=== PATIENT | male | born 1935 | race Caucasian/White ===

== ENCOUNTER 2017-07-27 03:46 | Inpatient (IN) | payer MEDICARE, BC ==
[2017-07-27] VITALS (10 sets, daily range): BP systolic 108–139; BP diastolic 53–92
[~2017-07-27] VITALS: Ht 177.8 cm; Wt 84.0 kg
[2017-07-27] MEDS ORDERED: mag hydrox/Alum hydrox/simeth 30ml oral suspension PO ONE (04:00)
[2017-07-27] MEDS ORDERED: LIDOcaine Viscous 15ml cup PO ONE (04:00)
[2017-07-27 04:20] LABS: BASOPHILS % (AUTO) 0.4 % (0-1); EOSINOPHILS # (AUTO) 0.2 X10'3 (0-0.9); EOSINOPHILS % (AUTO) 3.4 % (0-6); HEMATOCRIT 41.7 % (42.0-52.0); LYMPHOCYTES # (AUTO) 1.2 X10'3 (1.1-4.8); LYMPHOCYTES % (AUTO) 16.3 % (21-51); MEAN CORPUSCULAR HGB CONC 33.7 % (33.0-36.5); MEAN CORPUSCULAR VOLUME 98.1 FL (78-98); MEAN PLATELET VOLUME 8.2 FL (7.4-10.4); MONOCYTES # (AUTO) 0.7 X10'3 (0-0.9); MONOCYTES % (AUTO) 9.7 % (2-12); NEUTROPHILS % (AUTO) 70.2 % (42-75); PLATELET COUNT 189 X10'3 (140-440); RED BLOOD COUNT 4.25 X10'6 (4.70-6.10); RED CELL DISTRIBUTION WIDTH 13.7 % (11.5-14.5); WHITE BLOOD COUNT 7.1 X10'3 (4.5-11.0)
[2017-07-27] MEDS ORDERED: ondansetron/PF 4mg/2ml inj IV ONE (04:25)
[2017-07-27 04:33] LABS: PARTIAL THROMBOPLASTIN TIME 28 SECONDS (22-32); PROTHROMBIN TIME 10.5 SECONDS (9.0-12.0)
[2017-07-27 04:39] LABS: ALANINE AMINOTRANSFERASE 27 U/L (12-78); ALBUMIN 3.8 G/DL (3.4-5.0); ALBUMIN/GLOBULIN RATIO 1.2 (1.1-1.5); ALKALINE PHOSPHATASE 115 IU/L (46-116); ANION GAP 9 (8-16); ASPARTATE AMINO TRANSFERASE 19 U/L (10-37); BILIRUBIN,TOTAL 0.5 MG/DL (0.1-1.0); BLOOD UREA NITROGEN 27 MG/DL (7-18); BUN/CREATININE RATIO 24.3 (5.4-32.0); CALCIUM 9.3 MG/DL (8.5-10.1); CHLORIDE 106 MMOL/L (99-107); CREATININE 1.11 MG/DL (0.60-1.10); GLUCOSE 107 MG/DL (70-104); POTASSIUM 4.1 MMOL/L (3.5-5.1); SODIUM 144 MMOL/L (135-145); TOTAL CARBON DIOXIDE 29.5 MMOL/L (24-32); TOTAL PROTEIN 7.1 G/DL (6.4-8.2); eGFR 64 ML/MIN
[2017-07-27 04:40] LABS: LIPASE 178 U/L (73-393); MAGNESIUM 1.6 MG/DL (1.5-2.4)
[2017-07-27 05:10] LABS: CLARITY,URINE CLEAR (Clear); COLOR,URINE YELLOW (Yellow); GLUCOSE, URINE NEGATIVE (Neg); KETONES,URINE NEGATIVE (Neg); LEUKOCYTE ESTERASE ,URINE NEGATIVE (Neg); NITRITES, URINE NEGATIVE (Neg); OCCULT BLOOD,URINE NEGATIVE (Neg); PH,URINE 6.5 (4.8-8.0); PROTEIN,URINE NEGATIVE (Neg); UROBILINOGEN,URINE 0.2 E.U/dL (0.2-1.0)
[2017-07-27 05:20] LABS: UA COLLECTION TYPE CLN CATCH MIDSTREAM
[2017-07-27] MEDS ORDERED: METO25TA6 PO (05:25)
[2017-07-27] MEDS ORDERED: FINA5TAB11 PO (05:25)
[2017-07-27] MEDS ORDERED: MIRA50TA PO (05:25)
[2017-07-27] MEDS ORDERED: FLO0.4C PO (05:25)
[2017-07-27] MEDS ORDERED: CLOP75TA33 PO (05:26)
[2017-07-27] MEDS ORDERED: PANT-47 PO (05:26)
[2017-07-27] MEDS ORDERED: AMLO5TAB PO (05:28)
[2017-07-27] MEDS ORDERED: ATOR40TA PO (05:28)
[2017-07-27] MEDS ORDERED: normal saline 1000ml 1,000 ML IV SCH (08:43)
[2017-07-27] MEDS ORDERED: ondansetron/PF 4mg/2ml inj IV PRN (08:45)
[2017-07-27] MEDS ORDERED: mag hydrox/Alum hydrox/simeth 30ml oral suspension PO PRN (08:45)
[2017-07-27] MEDS ORDERED: magnesium 2GM in 50ml NS 50 ML IV PRN (08:45)
[2017-07-27] MEDS ORDERED: K and/or MAG REPLACEMENT MC SCH (08:45)
[2017-07-27] MEDS ORDERED: potassium Cl 40MEQ/NS 500ml 500 ML IV PRN ×2 (08:45)
[2017-07-27] MEDS ORDERED: potassium Cl 20 mEq SR tablet PO PRN ×2 (08:45)
[2017-07-27] MEDS ORDERED: morphine sulfate 8 MG/ML SYRINGE IV PRN ×2 (08:45)
[2017-07-27] MEDS ORDERED: magnesium 4gm in 100ml NS 100 ML IV PRN (08:45)
[2017-07-27] MEDS ORDERED: magnesium hydroxide 30ml (MOM) UD suspension PO PRN (08:45)
[2017-07-27] MEDS ORDERED: acetaminophen 325mg tablet PO PRN (08:45)
[2017-07-27] MEDS ORDERED: tamsulosin 0.4mg capsule PO SCH (08:50)
[2017-07-27] MEDS ORDERED: clopidogrel 75mg tablet PO SCH (08:50)
[2017-07-27] MEDS ORDERED: pantoprazole 40mg Tablet.DR PO SCH (08:50)
[2017-07-27] MEDS ORDERED: metoprolol tartrate 25mg tablet PO SCH (08:50)
[2017-07-27] MEDS ORDERED: metoprolol tartrate 1mg/ml inj IV PRN (09:00)
[2017-07-27] MEDS ORDERED: aminophylline 250mg/10ml inj. IV PRN (09:00)
[2017-07-27] MEDS ORDERED: nitroGLYCERIN 0.4mg SUBLingual tab SL PRN (09:00)
[2017-07-27] MEDS ORDERED: regadenoson 0.4mg/5ml syringe IV ONE (09:00)
[2017-07-28] MEDS ORDERED: mirabegron 25mg ER tablet PO SCH (08:00)
[2017-07-28] MEDS ORDERED: finasteride 5mg tablet PO SCH (08:00)
[2017-07-28] MEDS ORDERED: amLODIPine 5mg tablet PO SCH (08:00)
[2017-07-28] MEDS ORDERED: atorvastatin 20mg tablet PO SCH (08:00)
== END 2017-07-27 15:44 | disposition home or self-care (01) | DRG 446 ==
LOC: ER 03:47 → ED HOLD 08:43 → SUR 3N 09:45
PROVIDERS: ADMIT Internal Medicine; ATTEND Internal Medicine
PROC: 4A02XM4 Measurement of Cardiac Total Activity, External Approach (ICD-10-PCS; principal; 2017-07-27)
PROC: 3E073KZ Introduction of Other Diagnostic Substance into Coronary Artery, Percutaneous Approach (ICD-10-PCS; 2017-07-27)
DX: K80.20 Calculus of gallbladder without cholecystitis without obstruction (principal); K76.0 Fatty (change of) liver, not elsewhere classified; I12.9 Hypertensive chronic kidney disease with stage 1 through stage 4 chronic kidney disease, or unspecified chronic kidney disease; I25.10 Atherosclerotic heart disease of native coronary artery without angina pectoris; R07.9 Chest pain, unspecified; N18.9 Chronic kidney disease, unspecified; Z95.5 Presence of coronary angioplasty implant and graft; Z79.82 Long term (current) use of aspirin; Z79.899 Other long term (current) drug therapy; Z79.02 Long term (current) use of antithrombotics/antiplatelets
CPT/HCPCS: 36415; 71010; 74176; 76700; 78452; 80053; 81003; 83690; 83735; 84484; 85025; 85610; 85730; 93005; 93017; 93306; 96374; 96375; 99285; A9500; J2270; J2405; J7030

== ENCOUNTER 2018-06-30 00:52 | Inpatient (IN) | payer MEDICARE, BC ==
[~2018-06-30] VITALS: Ht 177.8 cm; Wt 90.9 kg
[~2018-06-30 00:52] MED LIST: AMLO5TAB PO; ATOR40TA PO; CLOP75TA33 PO; FINA5TAB11 PO; FLO0.4C PO; METO25TA6 PO; MIRA50TA PO; PANT-47 PO
[2018-06-30] MEDS ORDERED: ketorolac trometh. 30mg/ml inj. IV ONE (01:00)
[2018-06-30] MEDS ORDERED: LIDOcaine Viscous 15ml cup PO ONE (01:05)
[2018-06-30] MEDS ORDERED: mag hydrox/Alum hydrox/simeth 30ml oral suspension PO ONE (01:05)
[2018-06-30 01:13] LABS: EOSINOPHILS # (AUTO) 0.2 X10'3 (0-0.9); HEMATOCRIT 43.9 % (42.0-52.0); HEMOGLOBIN 14.9 g/dl (14.0-17.9); LYMPHOCYTES # (AUTO) 1.6 X10'3 (1.1-4.8); LYMPHOCYTES % (AUTO) 32.7 % (21-51); MEAN CORPUSCULAR HGB CONC 33.9 % (33.0-36.5); MEAN CORPUSCULAR VOLUME 97.3 FL (78-98); MEAN PLATELET VOLUME 8.4 FL (7.4-10.4); MONOCYTES # (AUTO) 0.7 X10'3 (0-0.9); MONOCYTES % (AUTO) 13.6 % (2-12); NEUTROPHILS # (AUTO) 2.3 X10'3 (1.8-7.7); NEUTROPHILS % (AUTO) 48.7 % (42-75); PLATELET COUNT 192 X10'3 (140-440); RED BLOOD COUNT 4.51 X10'6 (4.70-6.10); RED CELL DISTRIBUTION WIDTH 12.9 % (11.5-14.5); WHITE BLOOD COUNT 4.8 X10'3 (4.5-11.0)
[2018-06-30 01:23] LABS: ALANINE AMINOTRANSFERASE 46 U/L (12-78); ALBUMIN 3.7 G/DL (3.4-5.0); ALBUMIN/GLOBULIN RATIO 1.1 (1.1-1.5); ALKALINE PHOSPHATASE 127 IU/L (46-116); ANION GAP 7 (8-16); ASPARTATE AMINO TRANSFERASE 28 U/L (10-37); BILIRUBIN,TOTAL 0.4 MG/DL (0.1-1.0); BLOOD UREA NITROGEN 20 MG/DL (7-18); BUN/CREATININE RATIO 17.2 (5.4-32.0); CHLORIDE 106 MMOL/L (99-107); CREATININE 1.16 MG/DL (0.60-1.10); GLUCOSE 101 MG/DL (70-104); SODIUM 141 MMOL/L (135-145); TOTAL CARBON DIOXIDE 28.5 MMOL/L (24-32); eGFR 61 ML/MIN
[2018-06-30 01:31] LABS: MAGNESIUM 1.9 MG/DL (1.5-2.4)
[2018-06-30] MEDS ORDERED: ondansetron/PF 4mg/2ml inj IV ONE ×2 (01:40→03:45)
[2018-06-30] MEDS ORDERED: iohexol 300mg/ml 100ml inj. ONE (03:53)
[2018-06-30] MEDS: morphine 4 MG/ML inj SYRINge IV PRN ×2 (03:56→04:46)
[2018-06-30] MEDS ORDERED: pantoprazole 40 MG vial IV ONE (05:05)
[2018-06-30] MEDS ORDERED: ASPI-1265 PO (05:29)
[2018-06-30] MEDS ORDERED: morphine 4 MG/ML inj SYRINge IV ONE (05:40)
[2018-06-30] MEDS ORDERED: HYDROmorphone 1 mg/ml syringe IV ONE (05:45)
[2018-06-30] MEDS ORDERED: ondansetron/PF 4mg/2ml inj IV PRN (05:55)
[2018-06-30] MEDS ORDERED: HYDROmorphone 1 mg/ml syringe IV PRN (05:55)
[2018-06-30] MEDS ORDERED: mag hydrox/Alum hydrox/simeth 30ml oral suspension PO PRN (05:55)
[2018-06-30] MEDS ORDERED: acetaminophen 325mg tablet PO PRN ×2 (05:55)
[2018-06-30] MEDS ORDERED: magnesium hydroxide 30ml (MOM) UD suspension PO PRN (05:55)
[2018-06-30 07:30] VITALS: BP 165/82
[2018-06-30] MEDS ORDERED: mirabegron 25mg ER tablet PO SCH (08:00)
[2018-06-30] MEDS: normal saline 1000ml 1,000 ML IV SCH ×3 (09:56→22:40)
[2018-06-30] MEDS: clopidogrel 75mg tablet PO SCH (09:57)
[2018-06-30] MEDS: pantoprazole 40mg Tablet.DR PO SCH (09:57)
[2018-06-30] MEDS: HYDROmorphone 1 mg/ml syringe IV PRN ×2 (09:57→16:52)
[2018-06-30] MEDS: metoprolol tartrate 25mg tablet PO SCH (09:58)
[2018-06-30] MEDS: finasteride 5mg tablet PO SCH (09:58)
[2018-06-30] MEDS: aspirin 81mg tab.chew PO SCH (09:59)
[2018-06-30] MEDS: atorvastatin 20mg tablet PO SCH (09:59)
[2018-06-30] MEDS: amLODIPine 5mg tablet PO SCH (09:59)
[2018-06-30 10:00] VITALS: BP 154/77
[2018-06-30] MEDS ORDERED: iohexol 350MG/ML 100ml bottle IV ONE (13:36)
[2018-06-30 18:00] VITALS: BP 147/69
[2018-06-30 22:00] VITALS: BP 132/72
[2018-07-01] MEDS: HYDROmorphone 1 mg/ml syringe IV PRN ×2 (04:41→08:25)
[2018-07-01 05:47] LABS: BASOPHILS # (AUTO) 0.1 X10'3 (0-0.2); BASOPHILS % (AUTO) 1.1 % (0-1); EOSINOPHILS % (AUTO) 0.1 % (0-6); HEMATOCRIT 43.4 % (42.0-52.0); HEMOGLOBIN 14.4 g/dl (14.0-17.9); LYMPHOCYTES # (AUTO) 0.7 X10'3 (1.1-4.8); LYMPHOCYTES % (AUTO) 6.3 % (21-51); MEAN CORPUSCULAR HEMOGLOBIN 32.7 PG (27.0-31.0); MEAN CORPUSCULAR HGB CONC 33.1 % (33.0-36.5); MEAN CORPUSCULAR VOLUME 98.6 FL (78-98); MEAN PLATELET VOLUME 8.5 FL (7.4-10.4); MONOCYTES # (AUTO) 1.3 X10'3 (0-0.9); MONOCYTES % (AUTO) 11.6 % (2-12); NEUTROPHILS # (AUTO) 9.3 X10'3 (1.8-7.7); NEUTROPHILS % (AUTO) 80.9 % (42-75); PLATELET COUNT 175 X10'3 (140-440); RED CELL DISTRIBUTION WIDTH 13.6 % (11.5-14.5); WHITE BLOOD COUNT 11.5 X10'3 (4.5-11.0)
[2018-07-01 05:58] LABS: ALBUMIN 3.3 G/DL (3.4-5.0); ANION GAP 8 (8-16); BLOOD UREA NITROGEN 21 MG/DL (7-18); BUN/CREATININE RATIO 17.1 (5.4-32.0); CALCIUM 8.7 MG/DL (8.5-10.1); CHLORIDE 104 MMOL/L (99-107); CREATININE 1.23 MG/DL (0.60-1.10); GLUCOSE 115 MG/DL (70-104); POTASSIUM 4.2 MMOL/L (3.5-5.1); SODIUM 139 MMOL/L (135-145); eGFR 57 ML/MIN
[2018-07-01 06:00] VITALS: BP 157/77
[2018-07-01] MEDS: TYPE IN GENERIC & BRAND NAME OF PATIENT MED STRENGTH & FORM PO SCH (08:00)
[2018-07-01] MEDS: finasteride 5mg tablet PO SCH (08:28)
[2018-07-01] MEDS: pantoprazole 40mg Tablet.DR PO SCH (08:29)
[2018-07-01] MEDS: clopidogrel 75mg tablet PO SCH (08:29)
[2018-07-01] MEDS: metoprolol tartrate 25mg tablet PO SCH (08:29)
[2018-07-01] MEDS: amLODIPine 5mg tablet PO SCH (08:29)
[2018-07-01] MEDS: aspirin 81mg tab.chew PO SCH (08:29)
[2018-07-01] MEDS: normal saline 1000ml 1,000 ML IV SCH ×2 (08:29→21:21)
[2018-07-01] MEDS: atorvastatin 20mg tablet PO SCH (08:30)
[2018-07-01 10:00] VITALS: BP 150/82
[2018-07-01] MEDS: piperacillin/tazo 3.375gm/50ml 50 ML IV SCH ×2 (16:10→23:40)
[2018-07-01 18:00] VITALS: BP 136/73
[2018-07-01 22:00] VITALS: BP 155/73
[2018-07-02] MEDS: normal saline 1000ml 1,000 ML IV SCH (04:01)
[2018-07-02 05:00] VITALS: BP 149/72
[2018-07-02 06:36] LABS: BASOPHILS % (AUTO) 0.1 % (0-1); EOSINOPHILS # (AUTO) 0.2 X10'3 (0-0.9); EOSINOPHILS % (AUTO) 1.7 % (0-6); HEMATOCRIT 40.5 % (42.0-52.0); HEMOGLOBIN 13.5 g/dl (14.0-17.9); LYMPHOCYTES # (AUTO) 0.7 X10'3 (1.1-4.8); LYMPHOCYTES % (AUTO) 6.6 % (21-51); MEAN CORPUSCULAR HEMOGLOBIN 32.4 PG (27.0-31.0); MEAN CORPUSCULAR HGB CONC 33.3 % (33.0-36.5); MEAN CORPUSCULAR VOLUME 97.5 FL (78-98); MEAN PLATELET VOLUME 8.9 FL (7.4-10.4); MONOCYTES # (AUTO) 1.1 X10'3 (0-0.9); MONOCYTES % (AUTO) 10.4 % (2-12); NEUTROPHILS # (AUTO) 8.5 X10'3 (1.8-7.7); NEUTROPHILS % (AUTO) 81.2 % (42-75); PLATELET COUNT 159 X10'3 (140-440); RED BLOOD COUNT 4.15 X10'6 (4.70-6.10); RED CELL DISTRIBUTION WIDTH 13.3 % (11.5-14.5); WHITE BLOOD COUNT 10.4 X10'3 (4.5-11.0)
[2018-07-02 06:48] LABS: ALBUMIN 2.7 G/DL (3.4-5.0); ANION GAP 8 (8-16); BLOOD UREA NITROGEN 22 MG/DL (7-18); BUN/CREATININE RATIO 19.1 (5.4-32.0); CALCIUM 8.7 MG/DL (8.5-10.1); CHLORIDE 105 MMOL/L (99-107); CREATININE 1.15 MG/DL (0.60-1.10); GLUCOSE 101 MG/DL (70-104); POTASSIUM 3.9 MMOL/L (3.5-5.1); SODIUM 138 MMOL/L (135-145); TOTAL CARBON DIOXIDE 24.9 MMOL/L (24-32); eGFR 61 ML/MIN
[2018-07-02] MEDS: TYPE IN GENERIC & BRAND NAME OF PATIENT MED STRENGTH & FORM PO SCH (08:00)
[2018-07-02] MEDS: piperacillin/tazo 3.375gm/50ml 50 ML IV SCH (08:06)
[2018-07-02] MEDS: clopidogrel 75mg tablet PO SCH (08:06)
[2018-07-02] MEDS: finasteride 5mg tablet PO SCH (08:06)
[2018-07-02] MEDS: amLODIPine 5mg tablet PO SCH (08:06)
[2018-07-02] MEDS: metoprolol tartrate 25mg tablet PO SCH (08:07)
[2018-07-02] MEDS: aspirin 81mg tab.chew PO SCH (08:07)
[2018-07-02] MEDS: pantoprazole 40mg Tablet.DR PO SCH (08:07)
[2018-07-02 08:15] VITALS: BP 139/76
[2018-07-02 10:00] VITALS: BP 134/71
[2018-07-02] MEDS ORDERED: atorvastatin 20mg tablet PO SCH (14:40)
[2018-07-02 18:00] VITALS: BP 129/76
[2018-07-02] MEDS: lactobacillus rhamnosus 10,000 MMU CELLS/CAPSULE PO SCH (20:06)
[2018-07-02] MEDS: atorvastatin 20mg tablet PO SCH (21:22)
[2018-07-02 22:00] VITALS: BP 138/73
[2018-07-03] MEDS: morphine 2 MG/ML inj. syringe IV PRN (03:20)
[2018-07-03 05:57] LABS: BASOPHILS # (AUTO) 0.1 X10'3 (0-0.2); BASOPHILS % (AUTO) 1.2 % (0-1); EOSINOPHILS # (AUTO) 0.3 X10'3 (0-0.9); EOSINOPHILS % (AUTO) 3.7 % (0-6); HEMATOCRIT 42.1 % (42.0-52.0); HEMOGLOBIN 14.1 g/dl (14.0-17.9); LYMPHOCYTES # (AUTO) 0.9 X10'3 (1.1-4.8); LYMPHOCYTES % (AUTO) 10.7 % (21-51); MEAN CORPUSCULAR HEMOGLOBIN 32.8 PG (27.0-31.0); MEAN CORPUSCULAR HGB CONC 33.5 % (33.0-36.5); MEAN CORPUSCULAR VOLUME 97.9 FL (78-98); MEAN PLATELET VOLUME 8.5 FL (7.4-10.4); MONOCYTES # (AUTO) 0.8 X10'3 (0-0.9); MONOCYTES % (AUTO) 9.5 % (2-12); NEUTROPHILS # (AUTO) 6.1 X10'3 (1.8-7.7); NEUTROPHILS % (AUTO) 74.9 % (42-75); PLATELET COUNT 171 X10'3 (140-440); RED CELL DISTRIBUTION WIDTH 13.4 % (11.5-14.5); WHITE BLOOD COUNT 8.1 X10'3 (4.5-11.0)
[2018-07-03 06:00] VITALS: BP 143/79
[2018-07-03 06:05] LABS: ALBUMIN 2.8 G/DL (3.4-5.0); ANION GAP 7 (8-16); BLOOD UREA NITROGEN 17 MG/DL (7-18); BUN/CREATININE RATIO 14.8 (5.4-32.0); CALCIUM 8.9 MG/DL (8.5-10.1); CHLORIDE 107 MMOL/L (99-107); CREATININE 1.15 MG/DL (0.60-1.10); GLUCOSE 90 MG/DL (70-104); POTASSIUM 3.9 MMOL/L (3.5-5.1); SODIUM 141 MMOL/L (135-145); TOTAL CARBON DIOXIDE 27.1 MMOL/L (24-32); eGFR 61 ML/MIN
[2018-07-03] MEDS ORDERED: NORMAL SALINE IV ONE (07:40)
[2018-07-03] MEDS ORDERED: SINCALIDE IV ONE (07:40)
[2018-07-03] MEDS: lactobacillus rhamnosus 10,000 MMU CELLS/CAPSULE PO SCH ×2 (08:00→19:19)
[2018-07-03] MEDS: clopidogrel 75mg tablet PO SCH (08:00)
[2018-07-03] MEDS: amLODIPine 5mg tablet PO SCH (08:00)
[2018-07-03] MEDS: TYPE IN GENERIC & BRAND NAME OF PATIENT MED STRENGTH & FORM PO SCH (08:00)
[2018-07-03] MEDS: metoprolol tartrate 25mg tablet PO SCH (08:00)
[2018-07-03] MEDS: pantoprazole 40mg Tablet.DR PO SCH (08:00)
[2018-07-03] MEDS: finasteride 5mg tablet PO SCH (08:00)
[2018-07-03 08:14] LABS: LIPASE 146 U/L (73-393)
[2018-07-03] MEDS: aspirin 81mg tab.chew PO SCH (08:30)
[2018-07-03 08:39] LABS: ALANINE AMINOTRANSFERASE 26 U/L (12-78); ALBUMIN/GLOBULIN RATIO 0.8 (1.1-1.5); ALKALINE PHOSPHATASE 95 IU/L (46-116); ASPARTATE AMINO TRANSFERASE 23 U/L (10-37); BILIRUBIN,DIRECT 0.2 MG/DL (0-0.3); BILIRUBIN,TOTAL 1.3 MG/DL (0.1-1.0); TOTAL PROTEIN 6.3 G/DL (6.4-8.2)
[2018-07-03] MEDS ORDERED: morphine 2 MG/ML inj. syringe IV PRN (15:45)
[2018-07-03] MEDS ORDERED: morphine 2 MG/ML inj. syringe ONE (15:47)
[2018-07-03 18:00] VITALS: BP 159/91
[2018-07-03] MEDS: atorvastatin 20mg tablet PO SCH (19:21)
[2018-07-03 22:00] VITALS: BP 142/76
[2018-07-04] VITALS (21 sets, daily range): BP systolic 130–183; BP diastolic 68–101
[2018-07-04 06:01] LABS: BASOPHILS % (AUTO) 0.5 % (0-1); EOSINOPHILS # (AUTO) 0.4 X10'3 (0-0.9); HEMATOCRIT 39.6 % (42.0-52.0); HEMOGLOBIN 13.4 g/dl (14.0-17.9); LYMPHOCYTES # (AUTO) 0.9 X10'3 (1.1-4.8); LYMPHOCYTES % (AUTO) 15.2 % (21-51); MEAN CORPUSCULAR HGB CONC 33.8 % (33.0-36.5); MEAN CORPUSCULAR VOLUME 97.6 FL (78-98); MEAN PLATELET VOLUME 8.3 FL (7.4-10.4); MONOCYTES # (AUTO) 0.7 X10'3 (0-0.9); MONOCYTES % (AUTO) 12.2 % (2-12); NEUTROPHILS # (AUTO) 3.9 X10'3 (1.8-7.7); NEUTROPHILS % (AUTO) 65.1 % (42-75); PLATELET COUNT 198 X10'3 (140-440); RED BLOOD COUNT 4.06 X10'6 (4.70-6.10)
[2018-07-04 06:05] LABS: ALBUMIN 2.7 G/DL (3.4-5.0); ANION GAP 9 (8-16); BLOOD UREA NITROGEN 17 MG/DL (7-18); BUN/CREATININE RATIO 16.3 (5.4-32.0); CALCIUM 8.7 MG/DL (8.5-10.1); CHLORIDE 106 MMOL/L (99-107); CREATININE 1.04 MG/DL (0.60-1.10); GLUCOSE 85 MG/DL (70-104); POTASSIUM 3.7 MMOL/L (3.5-5.1); SODIUM 141 MMOL/L (135-145); TOTAL CARBON DIOXIDE 26.2 MMOL/L (24-32); eGFR 69 ML/MIN
[2018-07-04] MEDS ORDERED: LIDOcaine 1% 30ml preserv. free vial ONE (06:58)
[2018-07-04] MEDS ORDERED: BUPIVAcaine/PF 2.5mg/ml (0.25%) 10ml vial ONE (06:58)
[2018-07-04] MEDS ORDERED: sevoflurane 250ml liquid IH ONE (07:23)
[2018-07-04] MEDS ORDERED: midazolam 2 mg/2 ml injection ONE (07:29)
[2018-07-04] MEDS ORDERED: fentaNYL/PF 50MCG/1 ML 2ML syringe ONE ×2 (07:29)
[2018-07-04] MEDS ORDERED: propofol inj 20 ML IV ONE (07:32)
[2018-07-04] MEDS ORDERED: rocuronium 10mg/ml inj IV ONE (07:34)
[2018-07-04] MEDS ORDERED: proCHLORperazine 10 MG/2 ml inj IV PRN (08:00)
[2018-07-04] MEDS ORDERED: ondansetron/PF 4mg/2ml inj IV PRN (08:00)
[2018-07-04] MEDS ORDERED: morphine 4 MG/ML inj SYRINge IV PRN ×2 (08:00)
[2018-07-04] MEDS ORDERED: meperidine/PF 25mg/ml syringe IV PRN ×2 (08:00)
[2018-07-04] MEDS ORDERED: ringers solution, lacted 1,000 ML IV SCH (08:00)
[2018-07-04] MEDS: TYPE IN GENERIC & BRAND NAME OF PATIENT MED STRENGTH & FORM PO SCH (08:00)
[2018-07-04] MEDS ORDERED: glycopyrrolate 0.2mg/ml inj ONE (08:57)
[2018-07-04] MEDS ORDERED: neostigmine methylsulfate 1 MG/ML 10ml vial ONE (08:57)
[2018-07-04] MEDS ORDERED: HYDROcodone/acetaminophen 5mg/325mg tablet PO PRN (09:00)
[2018-07-04] MEDS: meperidine/PF 25mg/ml syringe IV PRN ×2 (09:20→09:49)
[2018-07-04] MEDS ORDERED: LIDOcaine 2% 10ml TOPICAL JELLY (Urojet) MM ONE (12:35)
[2018-07-04] MEDS: lactobacillus rhamnosus 10,000 MMU CELLS/CAPSULE PO SCH ×2 (13:32→20:36)
[2018-07-04] MEDS: metoprolol tartrate 25mg tablet PO SCH (13:33)
[2018-07-04] MEDS: aspirin 81mg tab.chew PO SCH (13:34)
[2018-07-04] MEDS: clopidogrel 75mg tablet PO SCH (13:34)
[2018-07-04] MEDS: amLODIPine 5mg tablet PO SCH (13:34)
[2018-07-04] MEDS: pantoprazole 40mg Tablet.DR PO SCH (13:34)
[2018-07-04] MEDS: finasteride 5mg tablet PO SCH (13:34)
[2018-07-04] MEDS: HYDROcodone/acetaminophen 10/325mg tab PO PRN ×2 (13:35→20:38)
[2018-07-04] MEDS: docusate sod 100mg capsule PO PRN (13:35)
[2018-07-04] MEDS: atorvastatin 20mg tablet PO SCH (20:36)
[2018-07-04] MEDS: morphine 2 MG/ML inj. syringe IV PRN (21:41)
[2018-07-05 02:00] VITALS: BP 148/83
[2018-07-05] MEDS: HYDROcodone/acetaminophen 10/325mg tab PO PRN ×2 (05:51→18:31)
[2018-07-05 06:00] VITALS: BP 149/91
[2018-07-05 06:09] LABS: BASOPHILS % (AUTO) 0.6 % (0-1); EOSINOPHILS # (AUTO) 0.2 X10'3 (0-0.9); EOSINOPHILS % (AUTO) 2.5 % (0-6); HEMATOCRIT 40.4 % (42.0-52.0); HEMOGLOBIN 13.6 g/dl (14.0-17.9); LYMPHOCYTES # (AUTO) 0.7 X10'3 (1.1-4.8); LYMPHOCYTES % (AUTO) 11.4 % (21-51); MEAN CORPUSCULAR HEMOGLOBIN 32.6 PG (27.0-31.0); MEAN CORPUSCULAR HGB CONC 33.6 % (33.0-36.5); MEAN CORPUSCULAR VOLUME 96.8 FL (78-98); MEAN PLATELET VOLUME 8.2 FL (7.4-10.4); MONOCYTES # (AUTO) 0.7 X10'3 (0-0.9); MONOCYTES % (AUTO) 10.9 % (2-12); NEUTROPHILS # (AUTO) 4.7 X10'3 (1.8-7.7); NEUTROPHILS % (AUTO) 74.6 % (42-75); PLATELET COUNT 221 X10'3 (140-440); RED BLOOD COUNT 4.17 X10'6 (4.70-6.10); RED CELL DISTRIBUTION WIDTH 12.8 % (11.5-14.5); WHITE BLOOD COUNT 6.3 X10'3 (4.5-11.0)
[2018-07-05 06:27] LABS: ANION GAP 11 (8-16); BLOOD UREA NITROGEN 17 MG/DL (7-18); BUN/CREATININE RATIO 17.3 (5.4-32.0); CALCIUM 8.8 MG/DL (8.5-10.1); CHLORIDE 102 MMOL/L (99-107); CREATININE 0.98 MG/DL (0.60-1.10); GLUCOSE 111 MG/DL (70-104); POTASSIUM 3.5 MMOL/L (3.5-5.1); SODIUM 138 MMOL/L (135-145); TOTAL CARBON DIOXIDE 24.9 MMOL/L (24-32); eGFR 74 ML/MIN
[2018-07-05] MEDS: TYPE IN GENERIC & BRAND NAME OF PATIENT MED STRENGTH & FORM PO SCH (08:00)
[2018-07-05] MEDS: finasteride 5mg tablet PO SCH (08:00)
[2018-07-05] MEDS: lactobacillus rhamnosus 10,000 MMU CELLS/CAPSULE PO SCH ×2 (09:42→20:31)
[2018-07-05] MEDS: docusate sod 100mg capsule PO PRN (09:42)
[2018-07-05] MEDS: amLODIPine 5mg tablet PO SCH (09:44)
[2018-07-05] MEDS: clopidogrel 75mg tablet PO SCH (09:44)
[2018-07-05] MEDS: pantoprazole 40mg Tablet.DR PO SCH (09:45)
[2018-07-05] MEDS: aspirin 81mg tab.chew PO SCH (09:45)
[2018-07-05] MEDS: metoprolol tartrate 25mg tablet PO SCH (09:46)
[2018-07-05 10:00] VITALS: BP 127/74
[2018-07-05 14:00] VITALS: BP 121/78
[2018-07-05] MEDS ORDERED: LACT1CAP26 PO (15:54)
[2018-07-05] MEDS ORDERED: COL100C PO (15:54)
[2018-07-05 18:00] VITALS: BP 137/80
[2018-07-05] MEDS ORDERED: finasteride 5mg tablet PO SCH (20:00)
[2018-07-05] MEDS: atorvastatin 20mg tablet PO SCH (20:32)
[2018-07-05 22:15] VITALS: BP 124/72
[2018-07-06] MEDS: HYDROcodone/acetaminophen 10/325mg tab PO PRN ×3 (00:54→10:30)
[2018-07-06 06:00] VITALS: BP 163/90
[2018-07-06] MEDS: TYPE IN GENERIC & BRAND NAME OF PATIENT MED STRENGTH & FORM PO SCH (08:00)
[2018-07-06] MEDS: lactobacillus rhamnosus 10,000 MMU CELLS/CAPSULE PO SCH (08:31)
[2018-07-06] MEDS: docusate sod 100mg capsule PO PRN (08:33)
[2018-07-06] MEDS: metoprolol tartrate 25mg tablet PO SCH (08:33)
[2018-07-06] MEDS: aspirin 81mg tab.chew PO SCH (08:33)
[2018-07-06] MEDS: pantoprazole 40mg Tablet.DR PO SCH (08:33)
[2018-07-06] MEDS: amLODIPine 5mg tablet PO SCH (08:33)
[2018-07-06] MEDS: clopidogrel 75mg tablet PO SCH (08:33)
[2018-07-06 10:00] VITALS: BP 106/68
== END 2018-07-06 14:25 | disposition home or self-care (01) | DRG 418 ==
LOC: ER 00:52 → ED HOLD 05:51 → EDBEDREQ 06:41 → ORTHO 4S 07:09
PROVIDERS: ADMIT Internal Medicine; ATTEND Family Medicine
PROC: BW211ZZ Computerized Tomography (CT Scan) of Abdomen and Pelvis using Low Osmolar Contrast (ICD-10-PCS; 2018-06-30)
PROC: B32T1ZZ Computerized Tomography (CT Scan) of Left Pulmonary Artery using Low Osmolar Contrast (ICD-10-PCS; 2018-06-30)
PROC: B3201ZZ Computerized Tomography (CT Scan) of Thoracic Aorta using Low Osmolar Contrast (ICD-10-PCS; 2018-06-30)
PROC: B32S1ZZ Computerized Tomography (CT Scan) of Right Pulmonary Artery using Low Osmolar Contrast (ICD-10-PCS; 2018-06-30)
PROC: B4201ZZ Computerized Tomography (CT Scan) of Abdominal Aorta using Low Osmolar Contrast (ICD-10-PCS; 2018-06-30)
PROC: B4241ZZ Computerized Tomography (CT Scan) of Superior Mesenteric Artery using Low Osmolar Contrast (ICD-10-PCS; 2018-06-30)
PROC: B4281ZZ Computerized Tomography (CT Scan) of Bilateral Renal Arteries using Low Osmolar Contrast (ICD-10-PCS; 2018-06-30)
PROC: B4211ZZ Computerized Tomography (CT Scan) of Celiac Artery using Low Osmolar Contrast (ICD-10-PCS; 2018-06-30)
PROC: CF141ZZ Planar Nuclear Medicine Imaging of Gallbladder using Technetium 99m (Tc-99m) (ICD-10-PCS; 2018-07-03)
PROC: 0FT44ZZ Resection of Gallbladder, Percutaneous Endoscopic Approach (ICD-10-PCS; principal; 2018-07-04 07:23)
DX: K80.00 Calculus of gallbladder with acute cholecystitis without obstruction (principal); K82.1 Hydrops of gallbladder; I25.10 Atherosclerotic heart disease of native coronary artery without angina pectoris; K82.A1 Gangrene of gallbladder in cholecystitis; H54.62 Unqualified visual loss, left eye, normal vision right eye; I11.0 Hypertensive heart disease with heart failure; H55.00 Unspecified nystagmus; I70.0 Atherosclerosis of aorta; N28.9 Disorder of kidney and ureter, unspecified; I48.91 Unspecified atrial fibrillation; I50.9 Heart failure, unspecified; Z95.5 Presence of coronary angioplasty implant and graft; Z90.49 Acquired absence of other specified parts of digestive tract; Z79.899 Other long term (current) drug therapy; Z79.82 Long term (current) use of aspirin; Z88.0 Allergy status to penicillin; Z88.2 Allergy status to sulfonamides
CPT/HCPCS: 36415; 71045; 71275; 72191; 74175; 74177; 78227; 80048; 80053; 80076; 83605; 83690; 83735; 83880; 84145; 84484; 85025; 87040; 87070; 88304; 93005; 96374; 96375; 96376; 99285; A7000; A9537; C9113; G0378; J0690; J1170; J1885; J2175; J2250; J2270; J2405; J2543; J2704; J2710; J3010; J3490; J7030; J7120; Q9967

== ENCOUNTER 2018-11-13 17:25 | Observation (INO) | payer MEDICARE, BC, OTHER ==
[~2018-11-13] VITALS: Ht 175.3 cm; Wt 84.5 kg
[~2018-11-13 17:25] MED LIST changes: +ASPI-1265 PO; +COL100C PO; -FLO0.4C PO; +LACT1CAP26 PO
--- NOTE | 2018-11-13 17:43 | NUR ---
xray at bedside.
[2018-11-13 18:02] LABS: BASOPHILS % (AUTO) 1.2 % (0-1); EOSINOPHILS # (AUTO) 0.1 X10'3 (0-0.9); EOSINOPHILS % (AUTO) 3.5 % (0-6); HEMATOCRIT 40.8 % (42.0-52.0); LYMPHOCYTES # (AUTO) 0.5 X10'3 (1.1-4.8); MEAN CORPUSCULAR HEMOGLOBIN 32.7 PG (27.0-31.0); MEAN CORPUSCULAR HGB CONC 34.3 g/dL (33.0-36.5); MEAN CORPUSCULAR VOLUME 95.4 FL (78-98); MEAN PLATELET VOLUME 8.3 FL (7.4-10.4); MONOCYTES # (AUTO) 0.7 X10'3 (0-0.9); MONOCYTES % (AUTO) 16.6 % (2-12); NEUTROPHILS # (AUTO) 2.8 X10'3 (1.8-7.7); NEUTROPHILS % (AUTO) 66.7 % (42-75); PLATELET COUNT 161 X10'3 (140-440); RED BLOOD COUNT 4.28 X10'6 (4.70-6.10); RED CELL DISTRIBUTION WIDTH 13.5 % (11.5-14.5); WHITE BLOOD COUNT 4.2 X10'3 (4.5-11.0)
[2018-11-13 18:10] LABS: PARTIAL THROMBOPLASTIN TIME 29 SECONDS (22-32)
[2018-11-13 18:12] LABS: ALANINE AMINOTRANSFERASE 200 U/L (12-78); ALBUMIN 3.2 G/DL (3.4-5.0); ALKALINE PHOSPHATASE 353 IU/L (46-116); ANION GAP 11 (8-16); ASPARTATE AMINO TRANSFERASE 99 U/L (10-37); BILIRUBIN,TOTAL 0.7 MG/DL (0.1-1.0); BLOOD UREA NITROGEN 32 MG/DL (7-18); BUN/CREATININE RATIO 24.6 (5.4-32.0); CALCIUM 9.1 MG/DL (8.5-10.1); CHLORIDE 105 MMOL/L (99-107); GLUCOSE 99 MG/DL (70-104); POTASSIUM 3.9 MMOL/L (3.5-5.1); SODIUM 139 MMOL/L (135-145); TOTAL PROTEIN 6.5 G/DL (6.4-8.2); eGFR 53 ML/MIN
[2018-11-13 18:41] LABS: TOTAL CELLS COUNTED 100
[2018-11-13 18:43] LABS: ELLIPTOCYTES FEW; PLATELET ESTIMATE NORMAL; POLYCHROMASIA FEW
[2018-11-13] MEDS ORDERED: FLO0.4C PO (20:34)
--- NOTE | 2018-11-13 20:34 | NUR ---
Pt comfortable. C/O hunger, I had ordered a dietary tray at 1900 but it is not here yet so I gave him a sandwiche and milk. He just got done visiting with his on the phone. NAD.
[2018-11-13] MEDS ORDERED: metoprolol tartrate 1mg/ml inj IV PRN (20:45)
[2018-11-13] MEDS ORDERED: aminophylline 250mg/10ml inj. IV PRN (20:45)
[2018-11-13] MEDS ORDERED: Melatonin 3mg tablet PO PRN (20:45)
[2018-11-13] MEDS ORDERED: regadenoson 0.4mg/5ml syringe IV ONE (20:45)
[2018-11-13] MEDS ORDERED: nitroGLYCERIN 0.4mg SUBLingual tab SL PRN (20:45)
[2018-11-13] MEDS ORDERED: regadenoson 0.4mg/5ml syringe IV PRN (20:55)
[2018-11-13 21:18] LABS: CHOL/HDL RATIO 5.2 (0.00-4.99); CHOLESTEROL 120 MG/DL (0-200); HDL CHOLESTEROL 23 MG/DL (35-60); LDL CHOLESTEROL 82 MG/DL (50-100); TRIGLYCERIDES 93 MG/DL (20-135)
--- NOTE | 2018-11-13 22:41 | NUR ---
He was bored so he went into the RAP room to watch some TV
--- NOTE | 2018-11-13 23:10 | NUR ---
Pt moved to room 8 on a hospital bed.
[2018-11-14] VITALS (19 sets, daily range): BP systolic 105–166; BP diastolic 63–80
--- NOTE | 2018-11-14 00:36 | NUR ---
pt asleep, will let him be.
--- NOTE | 2018-11-14 02:20 | NUR ---
pt remains asleep on his right side, NAD
--- NOTE | 2018-11-14 02:40 | NUR ---
pt had call light on, he is now up and going to the BR. He has no c/o anything and said he sure did sleep good.
--- NOTE | 2018-11-14 05:51 | NUR ---
pt is still asleep, NAD.
[2018-11-14] MEDS ORDERED: SUCR1TAB PO (07:51)
--- NOTE | 2018-11-14 08:26 | NUR ---
Patient in ED. I have received report from CHRIS Gomez in ED. Awaiting patient to go to room 347B.
--- NOTE | 2018-11-14 09:21 | NUR ---
Patient arrived to floor in room 346A, VSS at BP116/76 HR 62, RR18, O2 sats 99% on room air. Patient states he has little to no pain. Patient pleasant, alert and oriented. Nuclear Med arriving for patient's stress test at this time.
[2018-11-14] MEDS ORDERED: aminophylline inj. 10 ML IV ONE (09:58)
[2018-11-14] MEDS ORDERED: regadenoson 0.4mg/5ml syringe IV ONE (09:59)
[2018-11-14] MEDS: normal saline 1000ml 1,000 ML IV SCH ×2 (14:45→20:40)
[2018-11-14] MEDS ORDERED: heparin 1,000unit/ml 10ml vial 10 ML ONE (17:20)
[2018-11-14] MEDS ORDERED: iohexol 350 MG/1 ML 200ml bottle ONE (17:20)
[2018-11-14] MEDS ORDERED: LIDOcaine 1% (10mg/ml)w/preservative injection 20ml MDV ONE (17:20)
[2018-11-14] MEDS ORDERED: iohexol 350 MG/ML 50ML vial IV ONE (17:20)
[2018-11-14] MEDS ORDERED: nitroGLYCERIN-Tridil 50MG/D5W 250 ML IV ONE (17:20)
[2018-11-14] MEDS ORDERED: verapamil 2.5 mg/ml inj IV ONE (17:30)
[2018-11-14] MEDS ORDERED: fentaNYL/PF 50MCG/1 ML 2ML syringe ONE (17:41)
[2018-11-14] MEDS ORDERED: midazolam 2 mg/2 ml injection ONE (17:41)
--- NOTE | 2018-11-14 18:25 | NUR ---
Problems reprioritized. Patient report given, questions answered & plan of care reviewed with CHRIS Agee. Patient currently in medical lab technologist.
--- NOTE | 2018-11-14 18:30 | NUR ---
Patient in room [facility]. I have received report from Isabella PEREZ and had the opportunity to ask questions and assume patient care.
--- NOTE | 2018-11-14 19:00 | NUR ---
Received report from Kevin PEREZ labels molder. Patient to follow shortly.
--- NOTE | 2018-11-14 19:15 | NUR ---
Patient arrived to floor via W/C. A&Ox4. Assisted to bathroom and then helped into bed. NS running at 100cc/hr and vasc band in placed with no signs of any bleeding at this time. Post-procedural VS initiated.
[2018-11-14] MEDS ORDERED: HYDROcodone/acetaminophen 10/325mg tab PO PRN (20:50)
[2018-11-14] MEDS ORDERED: tamsulosin 0.4mg capsule PO SCH (21:00)
[2018-11-14] MEDS ORDERED: atorvastatin 20mg tablet PO SCH (21:00)
[2018-11-14] MEDS ORDERED: finasteride 5mg tablet PO SCH (21:00)
[2018-11-15] VITALS: BP 150/79
[2018-11-15] MEDS: normal saline 1000ml 1,000 ML IV SCH ×2 (00:26→06:40)
[2018-11-15 04:58] LABS: BASOPHILS % (AUTO) 0.8 % (0-1); EOSINOPHILS # (AUTO) 0.2 X10'3 (0-0.9); EOSINOPHILS % (AUTO) 5.3 % (0-6); HEMATOCRIT 38.7 % (42.0-52.0); HEMOGLOBIN 13.4 g/dl (14.0-17.9); LYMPHOCYTES # (AUTO) 0.9 X10'3 (1.1-4.8); MEAN CORPUSCULAR HEMOGLOBIN 32.8 PG (27.0-31.0); MEAN CORPUSCULAR HGB CONC 34.5 g/dL (33.0-36.5); MEAN PLATELET VOLUME 8.3 FL (7.4-10.4); MONOCYTES # (AUTO) 0.7 X10'3 (0-0.9); MONOCYTES % (AUTO) 19.4 % (2-12); NEUTROPHILS # (AUTO) 1.6 X10'3 (1.8-7.7); NEUTROPHILS % (AUTO) 48.5 % (42-75); PLATELET COUNT 155 X10'3 (140-440); RED BLOOD COUNT 4.08 X10'6 (4.70-6.10); RED CELL DISTRIBUTION WIDTH 13.3 % (11.5-14.5); WHITE BLOOD COUNT 3.4 X10'3 (4.5-11.0)
[2018-11-15 05:27] LABS: ALBUMIN 2.8 G/DL (3.4-5.0); ANION GAP 8 (8-16); BLOOD UREA NITROGEN 21 MG/DL (7-18); BUN/CREATININE RATIO 21.2 (5.4-32.0); CALCIUM 8.4 MG/DL (8.5-10.1); CHLORIDE 107 MMOL/L (99-107); CHOL/HDL RATIO 5.5 (0.00-4.99); CHOLESTEROL 116 MG/DL (0-200); CREATININE 0.99 MG/DL (0.60-1.10); GLUCOSE 91 MG/DL (70-104); HDL CHOLESTEROL 21 MG/DL (35-60); LDL CHOLESTEROL 85 MG/DL (50-100); POTASSIUM 3.7 MMOL/L (3.5-5.1); SODIUM 141 MMOL/L (135-145); TRIGLYCERIDES 72 MG/DL (20-135); eGFR 73 ML/MIN
--- NOTE | 2018-11-15 06:30 | NUR ---
Patient in room [facility]. I have received report from LINDSAY PEREZ and had the opportunity to ask questions and assume patient care.
--- NOTE | 2018-11-15 06:42 | NUR ---
Problems reprioritized. Patient report given, questions answered & plan of care reviewed with Amanda PEREZ.
[2018-11-15 07:00] VITALS: BP 134/74
[2018-11-15] MEDS ORDERED: metoprolol tartrate 25mg tablet PO SCH (08:00)
[2018-11-15] MEDS ORDERED: clopidogrel 75mg tablet PO SCH (08:00)
[2018-11-15] MEDS ORDERED: amLODIPine 5mg tablet PO SCH (08:00)
[2018-11-15] MEDS ORDERED: isosorbide mononitrate 30mg tab.SR.24H PO SCH (08:00)
[2018-11-15] MEDS ORDERED: pantoprazole 40mg Tablet.DR PO SCH (08:00)
[2018-11-15] MEDS ORDERED: finasteride 5mg tablet PO SCH (08:00)
[2018-11-15 08:15] VITALS: BP_SYST 101
== END 2018-11-15 11:00 | disposition home or self-care (01) ==
LOC: ER 17:26 → UNDOADMIN 23:15 → ED HOLD 23:15 → SUR 3N 11-14 09:15 → CMPBEDREQ 11-14 20:00
PROVIDERS: ADMIT Hospitalist; ATTEND Hospitalist
DX: R07.89 Other chest pain (principal); D72.825 Bandemia; R74.0 Nonspecific elevation of levels of transaminase and lactic acid dehydrogenase [LDH]; I25.10 Atherosclerotic heart disease of native coronary artery without angina pectoris; N17.9 Acute kidney failure, unspecified; I10 Essential (primary) hypertension; E78.00 Pure hypercholesterolemia, unspecified; E78.5 Hyperlipidemia, unspecified; Z98.61 Coronary angioplasty status; Z95.5 Presence of coronary angioplasty implant and graft; Z87.438 Personal history of other diseases of male genital organs
CPT/HCPCS: 36415; 71045; 78452; 80048; 80053; 80061; 83880; 84484; 85025; 85610; 85730; 87070; 93005; 93017; 93458; 96374; 99285; A6257; A9500; G0378; J0280; J1644; J2001; J2250; J3010; J7030; Q9967; 99152; 99153; A4620; C1769; J3490

== ENCOUNTER 2019-10-04 07:03 | Observation (INO) | payer MEDICARE, OTHER ==
[2019-10-02 14:43] LABS: BASOPHILS # (AUTO) 0.1 X10'3 (0-0.2); BASOPHILS % (AUTO) 1.2 % (0-1); EOSINOPHILS # (AUTO) 0.1 X10'3 (0-0.9); EOSINOPHILS % (AUTO) 1.9 % (0-6); LYMPHOCYTES # (AUTO) 1.3 X10'3 (1.1-4.8); LYMPHOCYTES % (AUTO) 22.2 % (21-51); MEAN CORPUSCULAR HEMOGLOBIN 32.8 PG (27.0-31.0); MEAN CORPUSCULAR HGB CONC 33.9 g/dL (33.0-36.5); MEAN CORPUSCULAR VOLUME 96.7 FL (78-98); MEAN PLATELET VOLUME 8.3 FL (7.4-10.4); MONOCYTES # (AUTO) 0.5 X10'3 (0-0.9); MONOCYTES % (AUTO) 9.5 % (2-12); NEUTROPHILS # (AUTO) 3.7 X10'3 (1.8-7.7); NEUTROPHILS % (AUTO) 65.2 % (42-75); PRE OP HEMATOCRIT 42.3 % (42.0-52.0); PRE OP HEMOGLOBIN 14.3 g/dL (14.0-17.9); PRE OP PLATELET COUNT 173 X10'3 (140-440); RED BLOOD COUNT 4.37 X10'6 (4.70-6.10); RED CELL DISTRIBUTION WIDTH 13.5 % (11.5-14.5)
[2019-10-02 14:52] LABS: PRE OP INR 1.1 INR
[2019-10-02 14:53] LABS: ALBUMIN 3.8 G/DL (3.4-5.0); ALBUMIN/GLOBULIN RATIO 1.3 (1.1-1.5); ALKALINE PHOSPHATASE 95 IU/L (46-116); BLOOD UREA NITROGEN 22 MG/DL (7-18); BUN/CREATININE RATIO 17.7 (5.4-32.0); CALCIUM 8.8 MG/DL (8.5-10.1); CHLORIDE 106 MMOL/L (99-107); CREATININE 1.24 MG/DL (0.60-1.10); PRE OP ALT 45 U/L (30-65); PRE OP ANION GAP 8 (8-16); PRE OP AST 28 U/L (10-37); PRE OP BILIRUB, TOTAL 0.7 MG/DL (0.0-1.0); PRE OP GLUCOSE 159 MG/DL (70-104); PRE OP POTASSIUM 3.9 MMOL/L (3.4-5.1); PRE OP SODIUM 141 MMOL/L (135-145); TOTAL CARBON DIOXIDE 26.6 MMOL/L (24-32); TOTAL PROTEIN 6.8 G/DL (6.4-8.2); eGFR 56 ML/MIN
[2019-10-04] VITALS (19 sets, daily range): BP systolic 142–195; BP diastolic 79–133
[~2019-10-04] VITALS: Ht 177.8 cm; Wt 86.2 kg
[~2019-10-04 07:03] MED LIST changes: -ASPI-1265 PO; -COL100C PO; +DOCUMENT DATE & TIME OF BETA-BLOCKER PO ONE; +FLO0.4C PO; -LACT1CAP26 PO; -MIRA50TA PO; +PRE5T PO; +SUCR1TAB PO; +cefazolin/dext.iso 2gm/50ml 50 ML IV ONE; +famotidine 20mg tablet PO ONE
[2019-10-04] MEDS ORDERED: LIDOcaine 1% (10mg/ml) 2ml vial ONE (07:28)
[2019-10-04] MEDS: ringers solution, lacted 1,000 ML IV SCH ×2 (07:46→15:51)
[2019-10-04] MEDS ORDERED: ringers solution, lacted 1,000 ML IV SCH (08:06)
[2019-10-04] MEDS ORDERED: meperidine/PF 25mg/ml syringe IV PRN ×3 (08:10)
[2019-10-04] MEDS ORDERED: morphine 2 MG/ML inj. syringe IV PRN (08:10)
[2019-10-04] MEDS ORDERED: ondansetron/PF 4mg/2ml inj IV PRN ×2 (08:10→11:20)
[2019-10-04] MEDS ORDERED: proCHLORperazine 10 MG/2 ml inj IV PRN ×2 (08:10→11:10)
[2019-10-04] MEDS ORDERED: BUPIVACAINE liposomal/PF 13.3 MG/ML vial IM ONE ×2 (09:02→09:10)
[2019-10-04] MEDS ORDERED: LIDOcaine 1% 30ml preserv. free vial ONE (09:02)
[2019-10-04] MEDS ORDERED: BUPIVAcaine/PF 2.5mg/ml (0.25%) 10ml vial ONE ×2 (09:02→09:10)
[2019-10-04] MEDS ORDERED: BUPIVAcaine/PF 2.5 mg/ml (0.25%) 30ml vial ONE (09:02)
[2019-10-04] MEDS ORDERED: metoprolol tartrate 25mg tablet PO SCH (09:15)
[2019-10-04] MEDS ORDERED: desflurane 240ml liquid inh. IH ONE (09:22)
[2019-10-04] MEDS ORDERED: glycopyrrolate 0.2mg/ml inj ONE (09:22)
[2019-10-04] MEDS ORDERED: metoprolol tartrate 12.5mg (1/2 tablet) PO SCH (09:22)
[2019-10-04] MEDS ORDERED: dexamethasone sod phosphate 10mg/ml inj ONE (09:22)
[2019-10-04] MEDS ORDERED: neostigmine methylsulfate 1 MG/ML 10ml vial ONE (09:22)
[2019-10-04] MEDS ORDERED: fentaNYL/PF 50MCG/1 ML 2ML syringe ONE (09:28)
[2019-10-04] MEDS ORDERED: midazolam 2 mg/2 ml injection ONE (09:28)
[2019-10-04] MEDS ORDERED: propofol inj 20 ML IV ONE ×2 (09:29)
[2019-10-04] MEDS ORDERED: LIDOcaine 1%/PF 5ML 10 MG/ML VIAL ONE (09:29)
[2019-10-04] MEDS ORDERED: rocuronium 10mg/ml inj IV ONE (09:31)
[2019-10-04] MEDS ORDERED: ondansetron/PF 4mg/2ml inj ONE (09:36)
[2019-10-04] MEDS ORDERED: acetaminophen 1,000mg/100ml IV 100 ML IV ONE (09:43)
--- NOTE | 2019-10-04 11:02 | NUR ---
Received from OR via CHUCK , accompanied by Anesthesiologist JODY and report given by Anesthesiolgist. 10L MASK ON. 100% SATURATIONS. 4 BANDAIDS. 20G LUE. V/S KIANA. AWARE.ORAL AIRWAY REMOVED. WILL MEDICATE FOR PAIN,. Addendum: 10/04/19 at 1106 by Italo Montes RN, RN Amended: Links added.
[2019-10-04] MEDS ORDERED: oxyCODONE/APAP 5-325mg tablet PO PRN (11:05)
[2019-10-04] MEDS: morphine 4 MG/ML inj SYRINge IV PRN ×2 (11:07→11:52)
[2019-10-04] MEDS ORDERED: enalaprilat dihydrate 2.5mg/2ml vial IV PRN (11:10)
[2019-10-04] MEDS ORDERED: labetalol 20mg/4ml (5mg/ml) syringe IV PRN (11:10)
[2019-10-04] MEDS ORDERED: naloxone 0.4 mg/ml inj IV PRN (11:20)
[2019-10-04] MEDS: HYDROmorphone/NS 1 mg/ml CADD 50 ML IV SCH ×7 (11:20→23:00)
[2019-10-04] MEDS ORDERED: CADD PCA waste documentation MC PRN (11:20)
[2019-10-04] MEDS ORDERED: sucralfate 1 gm tablet PO PRN (11:25)
--- NOTE | 2019-10-04 12:12 | NUR ---
ALL DC CRITERIA HAS BEEN MET. IV TAKEN OUT WITHOUT COMPLICATIONS. ALL INSTRUCTIONS COVERED AND ALL QUESTIONS ANSWERED. DRESSINGS CDI. OUT VIA WHEELCHAIR TO PERSONAL VEHICLE WHERE PATIENT WAS SECURED IN AND DRIVEN HOME BY FAMILY. PATIENT WITH GOWN ON, LEFT ABDOMEN IS CDI- BANDAIDS INTACT. PAIN CONTROLLED WITH USE OF BUSINESS ANALYSIS CONSULTANT. CHRIS MANZANARES AND 2 OTHERS ASSISTED FROM GURNEY TO BED WITH SLIDER BOARD. ROLLED. SKIN CHECK TO SACRUM REVEALS CDI SACRAL AREA. VSS. RN PRESENT TO ACCEPT CARE OF PATIENT. Addendum: 10/04/19 at 1231 by Italo Rodriguez - CHRIS PEREZ Amended: Links added.
--- NOTE | 2019-10-04 12:27 | NUR ---
Patient in room . I have received report from darryl PEREZ and had the opportunity to ask questions and assume patient care.
--- NOTE | 2019-10-04 13:11 | NUR ---
Pt asked for neckless back that was removed before surgery - found in chart and returned
--- NOTE | 2019-10-04 13:12 | NUR ---
Patient in room [facility]. I have received report from Italo PEREZ and had the opportunity to ask questions and assume patient care.
[2019-10-04] MEDS ORDERED: hydrALAZINE 20mg/ml inj. IV PRN (13:25)
--- NOTE | 2019-10-04 16:59 | NUR ---
Student documentation: Misty Lovell RN Clinical Instructor for [facility], have reviewed all interventions, assessments performed and documented by Azul ALVARENGA from [facility].
[2019-10-04] MEDS ORDERED: LIDOcaine 2% 10ml TOPICAL JELLY (Urojet) MM ONE (17:30)
--- NOTE | 2019-10-04 17:58 | NUR ---
Problems reprioritized. Patient report given, questions answered & plan of care reviewed with Camille PEREZ.
--- NOTE | 2019-10-04 18:22 | NUR ---
patient orientated to room, dilaudid cadd pump controlling pain well. Three lap sites CDI. patients VSS. patient having difficulty voiding able to void 120mls, bladder scanned [address] de jesus paged, order not received, dr bowles pageomayra order given to straight cath patient. 800mls drained from bladder per SC. No other complaints of pain. Clear lqd diet ordered to be advanced to regular when patient is passing gas. report given to Katy Light RN
--- NOTE | 2019-10-04 18:26 | NUR ---
Patient in room [facility]. I have received report from CHRIS Obrien and had the opportunity to ask questions and assume patient care. Addendum: 10/04/19 at 1826 by Libertad Centeno RN Amended: Links added.
[2019-10-04] MEDS: amLODIPine 5mg tablet PO SCH (20:21)
[2019-10-04] MEDS: pantoprazole 40mg Tablet.DR PO SCH (20:21)
[2019-10-04] MEDS: metoprolol tartrate 25mg tablet PO SCH (20:21)
[2019-10-04] MEDS ORDERED: tamsulosin 0.4mg capsule PO SCH (21:00)
[2019-10-05] VITALS: BP 140/75
[2019-10-05] MEDS: HYDROmorphone/NS 1 mg/ml CADD 50 ML IV SCH ×5 (01:00→08:22)
--- NOTE | 2019-10-05 06:19 | NUR ---
Problems reprioritized. Patient report given, questions answered & plan of care reviewed with CHRIS Núñez.
[2019-10-05 06:20] LABS: BASOPHILS % (AUTO) 0.2 % (0-1); EOSINOPHILS % (AUTO) 0.1 % (0-6); HEMATOCRIT 42.6 % (42.0-52.0); HEMOGLOBIN 14.5 g/dl (14.0-17.9); LYMPHOCYTES # (AUTO) 0.8 X10'3 (1.1-4.8); LYMPHOCYTES % (AUTO) 8.4 % (21-51); MEAN CORPUSCULAR HEMOGLOBIN 32.6 PG (27.0-31.0); MEAN CORPUSCULAR HGB CONC 34.1 g/dL (33.0-36.5); MEAN CORPUSCULAR VOLUME 95.6 FL (78-98); MEAN PLATELET VOLUME 8.6 FL (7.4-10.4); NEUTROPHILS # (AUTO) 7.3 X10'3 (1.8-7.7); NEUTROPHILS % (AUTO) 80.3 % (42-75); PLATELET COUNT 176 X10'3 (140-440); RED BLOOD COUNT 4.46 X10'6 (4.70-6.10); RED CELL DISTRIBUTION WIDTH 13.7 % (11.5-14.5); WHITE BLOOD COUNT 9.1 X10'3 (4.5-11.0)
--- NOTE | 2019-10-05 06:25 | NUR ---
Patient in room [facility]. I have received report from gary and had the opportunity to ask questions and assume patient care.
[2019-10-05] MEDS ORDERED: finasteride 5mg tablet PO SCH (08:00)
[2019-10-05] MEDS ORDERED: predniSONE 5mg tablet PO SCH (08:00)
[2019-10-05] MEDS ORDERED: atorvastatin 20mg tablet PO SCH (08:00)
[2019-10-05] MEDS ORDERED: heparin, porcine 5000 units/ml vial SQ SCH (08:00)
[2019-10-05] MEDS: amLODIPine 5mg tablet PO SCH (08:19)
[2019-10-05] MEDS: pantoprazole 40mg Tablet.DR PO SCH (08:19)
[2019-10-05] MEDS: metoprolol tartrate 25mg tablet PO SCH (08:19)
[2019-10-05] MEDS ORDERED: ibuprofen tablet 400 MG TABLET PO ONE (08:50)
[2019-10-05] MEDS ORDERED: acetaminophen 325mg tablet PO ONE (08:50)
[2019-10-05] MEDS ORDERED: acetaminophen 325mg tablet PO PRN (08:55)
[2019-10-05] MEDS ORDERED: ibuprofen tablet 400 MG TABLET PO PRN (08:55)
[2019-10-05 09:00] VITALS: BP 150/84
[2019-10-05] MEDS ORDERED: CADD PCA waste documentation MC PRN (09:25)
[2019-10-05] MEDS ORDERED: OXYC-145 PO (11:49)
--- NOTE | 2019-10-05 12:22 | NUR ---
IV dc'd. Scripts, follow up appoinments, discharge instructions gone over with pt in detail. Pt discharged to home.
== END 2019-10-05 12:15 | disposition home or self-care (01) ==
LOC: PAS 07:03 → SUR 3N 11:19
PROVIDERS: ADMIT Surgery; ATTEND Surgery
DX: K43.2 Incisional hernia without obstruction or gangrene (principal); I10 Essential (primary) hypertension; E78.5 Hyperlipidemia, unspecified; R56.9 Unspecified convulsions; K21.9 Gastro-esophageal reflux disease without esophagitis; N40.0 Benign prostatic hyperplasia without lower urinary tract symptoms; I25.10 Atherosclerotic heart disease of native coronary artery without angina pectoris; Z90.49 Acquired absence of other specified parts of digestive tract; Z95.5 Presence of coronary angioplasty implant and graft
CPT/HCPCS: 36415; 49654; 80053; 82948; 85025; 85610; 85730; 93005; 96365; 96372; 96375; 96376; C1781; C9290; G0378; J0131; J1100; J1170; J1644; J2001; J2175; J2250; J2270; J2405; J2704; J2710; J3010; J3490; J7512; A4215; A4618; J7120

== ENCOUNTER 2023-06-13 13:24 | Outpatient (CLI) | payer MEDICARE ==
[~2023-06-13 13:24] MED LIST changes: -DOCUMENT DATE & TIME OF BETA-BLOCKER PO ONE; +LOP25T PO; -METO25TA6 PO; +OXYC-145 PO; -cefazolin/dext.iso 2gm/50ml 50 ML IV ONE; -famotidine 20mg tablet PO ONE
== END 2023-06-13 23:59 | disposition home or self-care (01) ==
LOC: CARD DIAG 13:24
PROVIDERS: ATTEND Family Medicine
DX: I08.0 Rheumatic disorders of both mitral and aortic valves (principal); I48.91 Unspecified atrial fibrillation; R05.3 Chronic cough
CPT/HCPCS: 93306

== ENCOUNTER 2023-08-19 10:31 | Observation (INO) | payer MEDICARE ==
[~2023-08-19] VITALS: Ht 177.8 cm; Wt 87.8 kg
[2023-08-19] VITALS (24 sets, daily range): BP systolic 137–194; BP diastolic 58–113; PULSE 50–74; RESP 12–20; TEMP 98.1; O2SAT 94–98
[2023-08-19] MEDS ORDERED: diphenhydrAMINE 25mg capsule PO PRN (10:50)
[2023-08-19] MEDS ORDERED: normal saline 1,000 ML IV SCH (10:50)
[2023-08-19] MEDS ORDERED: LORazepam 0.5 MG tablet PO PRN (10:50)
[2023-08-19] MEDS ORDERED: FURO20TA4 PO (11:00)
[2023-08-19] MEDS ORDERED: EMPA10TA PO (11:00)
[2023-08-19] MEDS ORDERED: ATOR-2 PO (11:00)
[2023-08-19] MEDS ORDERED: APIX5TAB3 PO (11:00)
[2023-08-19] MEDS ORDERED: CARV3.122 PO (11:00)
[2023-08-19] MEDS: sodium bicarbonate 1meq/ml syr 150 ML in dextrose 5%-water 1,000 ML IV SCH ×2 (11:17→17:38)
[2023-08-19] MEDS ORDERED: midazolam 1 mg/ML 2ml injection ONE (11:52)
[2023-08-19] MEDS ORDERED: heparin 1,000unit/ml 10ml vial 10 ML ONE (11:52)
[2023-08-19] MEDS ORDERED: iohexol 350MG/ML 100ml bottle IV ONE ×2 (11:52→13:00)
[2023-08-19] MEDS ORDERED: fentaNYL/PF 50MCG/1 ML 2ML syringe ONE (11:52)
[2023-08-19] MEDS ORDERED: verapamil 2.5 mg/ml inj IV ONE (11:52)
[2023-08-19] MEDS ORDERED: iohexol 350 MG/ML 50ML vial IV ONE ×2 (11:52→12:52)
[2023-08-19] MEDS ORDERED: nitroGLYCERIN 500mcg/5mL D5W 5 ML IV ONE ×2 (11:52→13:19)
[2023-08-19] MEDS ORDERED: LIDOcaine 1% (10mg/ml) 2ml vial ONE (11:53)
[2023-08-19] MEDS ORDERED: LIDOcaine 1% 30ml preserv. free vial ONE (12:52)
[2023-08-19 13:00] LABS: ISTAT HGB ART 14.6 g/dl (14.0-17.9); ISTAT Hct ART 43 %PCV (42-52); ISTAT O2 SATURATION ARTERIAL 95 % (95-98); ISTAT SOURCE ART
[2023-08-19] MEDS ORDERED: heparin 25,000 UNIT/250ml bag 250 ML IV ONE (13:00)
[2023-08-19] MEDS ORDERED: heparin 1,000 UNITS/NS 500ml 500 ML ONE (13:39)
[2023-08-19] MEDS ORDERED: clopidogrel 300mg tablet ONE (14:13)
[2023-08-19] MEDS ORDERED: fentaNYL/PF 50MCG/1 ML 2ML syringe IV ONE (15:05)
[2023-08-19] MEDS: hydrALAZINE 20mg/ml inj. IV SCH ×2 (15:23→18:41)
[2023-08-19] MEDS: HYDROcodone/acetaminophen 10/325mg tab PO PRN ×2 (15:24→22:21)
[2023-08-19] MEDS ORDERED: acetylcysteine 200 MG/ml 4ml vial PO ONE (15:30)
[2023-08-19] MEDS ORDERED: hydrALAZINE 20mg/ml inj. IV PRN (19:48)
[2023-08-19] MEDS ORDERED: heparin 10,000 units/1 ML INJ IV PRN (19:50)
[2023-08-19] MEDS ORDERED: heparin 25,000 UNIT/250ml bag 250 ML IV PRN (19:50)
[2023-08-19] MEDS ORDERED: heparin 10,000 units/1 ML INJ IV ONE (19:50)
[2023-08-19] MEDS ORDERED: HYDROcodone/acetaminophen 5mg/325mg tablet PO PRN (19:50)
[2023-08-19] MEDS: carVEDilol 3.125mg tablet PO SCH (22:22)
[2023-08-19] MEDS: acetylcysteine 200 MG/ml 4ml vial PO SCH (23:43)
[2023-08-20] VITALS (18 sets, daily range): BP systolic 124–165; BP diastolic 50–85; PULSE 58–84; RESP 13–19; TEMP 97.3–97.7; O2SAT 94–97
[2023-08-20 03:15] LABS: BASOPHILS # (AUTO) 0.1 X10'3 (0-0.2); BASOPHILS % (AUTO) 0.9 % (0-1); EOSINOPHILS # (AUTO) 0.1 X10'3 (0-0.9); EOSINOPHILS % (AUTO) 1.6 % (0-6); HEMOGLOBIN 7.4 g/dl (14.0-17.9); LYMPHOCYTES # (AUTO) 0.6 X10'3 (1.1-4.8); LYMPHOCYTES % (AUTO) 6.9 % (21-51); MEAN CORPUSCULAR HEMOGLOBIN 30.1 PG (27.0-31.0); MEAN CORPUSCULAR HGB CONC 33.9 g/dL (33.0-36.5); MEAN PLATELET VOLUME 8.7 FL (7.4-10.4); MONOCYTES # (AUTO) 0.8 X10'3 (0-0.9); MONOCYTES % (AUTO) 8.5 % (2-12); NEUTROPHILS # (AUTO) 7.7 X10'3 (1.8-7.7); NEUTROPHILS % (AUTO) 82.1 % (42-75); PLATELET COUNT 155 X10'3 (140-440); RED BLOOD COUNT 2.46 X10'6 (4.70-6.10); RED CELL DISTRIBUTION WIDTH 15.2 % (11.5-14.5); WHITE BLOOD COUNT 9.4 X10'3 (4.5-11.0)
[2023-08-20 03:24] LABS: HEMATOCRIT 21.9 % (42.0-52.0)
[2023-08-20] MEDS: sodium bicarbonate 1meq/ml syr 150 ML in dextrose 5%-water 1,000 ML IV SCH ×2 (03:33→14:55)
[2023-08-20 03:55] LABS: ALBUMIN 2.3 G/DL (3.4-5.0); ANION GAP 7 (8-16); BLOOD UREA NITROGEN 12 MG/DL (7-18); BUN/CREATININE RATIO 12.8 (10.0-20.0); CALCIUM 7.8 MG/DL (8.5-10.1); CHLORIDE 108 MMOL/L (99-107); CREATININE 0.94 MG/DL (0.60-1.10); GLUCOSE 84 MG/DL (70-104); POTASSIUM 3.5 MMOL/L (3.5-5.1); PRO BRAIN NATRIURETIC PEPTIDE 12234 PG/ML (0-450); SODIUM 139 MMOL/L (135-145); TOTAL CARBON DIOXIDE 24.2 MMOL/L (24-32); eCRCL 59 ML/MIN; eGFR 76 ML/MIN
[2023-08-20] MEDS: aspirin 81mg, enteric-coated 1 TAB TABLET.DR PO SCH (08:00)
[2023-08-20] MEDS: atorvastatin 20mg tablet PO SCH (08:00)
[2023-08-20] MEDS ORDERED: clopidogrel 75mg tablet PO SCH (08:00)
[2023-08-20] MEDS: acetylcysteine 200 MG/ml 4ml vial PO SCH ×2 (08:00→19:46)
[2023-08-20] MEDS ORDERED: atorvastatin 20mg tablet PO SCH (08:00)
[2023-08-20] MEDS ORDERED: iohexol 350MG/ML 100ml bottle IV ONE (10:25)
[2023-08-20] MEDS ORDERED: fentaNYL/PF 50MCG/1 ML 2ML syringe ONE (10:25)
[2023-08-20] MEDS ORDERED: midazolam 1 mg/ML 2ml injection ONE (10:25)
[2023-08-20] MEDS ORDERED: LIDOcaine 1% 30ml preserv. free vial ONE (10:25)
[2023-08-20] MEDS ORDERED: nitroGLYCERIN 500mcg/5mL D5W 5 ML IV ONE ×3 (11:31→12:37)
[2023-08-20] MEDS ORDERED: heparin 1,000unit/ml 10ml vial 10 ML ONE (11:41)
[2023-08-20] MEDS ORDERED: iohexol 350 MG/ML 50ML vial IV ONE (12:40)
[2023-08-20] MEDS ORDERED: clopidogrel 300mg tablet ONE (12:44)
[2023-08-20] MEDS ORDERED: HYDROcodone/acetaminophen 10/325mg tab PO PRN ×2 (13:49)
[2023-08-20] MEDS ORDERED: clopidogrel 300mg tablet PO ONE (13:50)
[2023-08-20] MEDS ORDERED: potassium Cl 20 mEq SR tablet PO ONE (14:00)
[2023-08-20] MEDS ORDERED: furosemide 20 MG/2 ML vial IV ONE (14:00)
[2023-08-20] MEDS: EMPAGLIFLOZIN 10 MG TABLET PO SCH (14:27)
[2023-08-20] MEDS: carVEDilol 3.125mg tablet PO SCH ×2 (14:27→19:39)
[2023-08-20] MEDS ORDERED: aspirin 81mg, enteric-coated 1 TAB TABLET.DR PO ONE (18:50)
[2023-08-20] MEDS ORDERED: ondansetron/PF 4mg/2ml inj IV PRN (19:35)
[2023-08-20] MEDS ORDERED: ondansetron/PF 4mg/2ml inj ONE (19:35)
[2023-08-21 02:00] VITALS: BP 142/79; PULSE 67; RESP 14; TEMP 97.1; O2SAT 96
[2023-08-21 06:00] VITALS: BP 150/74; PULSE 65; RESP 13; TEMP 97.4; O2SAT 94
[2023-08-21 07:21] LABS: BASOPHILS % (AUTO) 0.4 % (0-1); EOSINOPHILS # (AUTO) 0.1 X10'3 (0-0.9); EOSINOPHILS % (AUTO) 0.9 % (0-6); HEMATOCRIT 44.5 % (42.0-52.0); HEMOGLOBIN 14.9 g/dl (14.0-17.9); LYMPHOCYTES # (AUTO) 1.2 X10'3 (1.1-4.8); LYMPHOCYTES % (AUTO) 16.5 % (21-51); MEAN CORPUSCULAR HEMOGLOBIN 32.3 PG (27.0-31.0); MEAN CORPUSCULAR HGB CONC 33.5 g/dL (33.0-36.5); MEAN CORPUSCULAR VOLUME 96.3 FL (78-98); MEAN PLATELET VOLUME 8.6 FL (7.4-10.4); MONOCYTES # (AUTO) 0.9 X10'3 (0-0.9); MONOCYTES % (AUTO) 12.5 % (2-12); NEUTROPHILS % (AUTO) 69.7 % (42-75); PLATELET COUNT 172 X10'3 (140-440); RED BLOOD COUNT 4.62 X10'6 (4.70-6.10); RED CELL DISTRIBUTION WIDTH 13.6 % (11.5-14.5); WHITE BLOOD COUNT 7.2 X10'3 (4.5-11.0)
[2023-08-21 07:37] LABS: ALBUMIN 3.3 G/DL (3.4-5.0); ANION GAP 8 (8-16); BLOOD UREA NITROGEN 16 MG/DL (7-18); BUN/CREATININE RATIO 12.1 (10.0-20.0); CALCIUM 8.9 MG/DL (8.5-10.1); CHLORIDE 99 MMOL/L (99-107); CHOL/HDL RATIO 4.6 (0.00-4.99); CHOLESTEROL 223 MG/DL (0-200); CREATININE 1.32 MG/DL (0.60-1.10); GLUCOSE 106 MG/DL (70-104); HDL CHOLESTEROL 48 MG/DL (35-60); LDL CHOLESTEROL 144 MG/DL (50-100); SODIUM 138 MMOL/L (135-145); TOTAL CARBON DIOXIDE 31.2 MMOL/L (24-32); TRIGLYCERIDES 89 MG/DL (20-135); eCRCL 42 ML/MIN; eGFR 52 ML/MIN
[2023-08-21] MEDS ORDERED: clopidogrel 75mg tablet PO SCH (08:00)
[2023-08-21] MEDS: EMPAGLIFLOZIN 10 MG TABLET PO SCH (08:00)
[2023-08-21] MEDS: atorvastatin 20mg tablet PO SCH (08:56)
[2023-08-21] MEDS: aspirin 81mg, enteric-coated 1 TAB TABLET.DR PO SCH (08:57)
[2023-08-21] MEDS: carVEDilol 3.125mg tablet PO SCH (08:57)
[2023-08-21] MEDS ORDERED: ASPI-1071 PO (09:33)
[2023-08-21] MEDS ORDERED: CLOP75TA34 PO ×2 (09:33→09:41)
[2023-08-21] MEDS ORDERED: NITR0.4T51 SL (09:38)
[2023-08-22 06:40] LABS: ISTAT HGB ART 14.6 g/dl (14.0-17.9); ISTAT Hct ART 43 %PCV (42-52); ISTAT O2 SATURATION ARTERIAL 95 % (95-98); ISTAT SOURCE BLNK
[2023-08-22 06:45] LABS: ISTAT HGB MIX 8.2 g/dl (14.0-17.9); ISTAT Hct MIX 24 %PCV (42-52); ISTAT O2 SATURATION MIX VENOUS 68 % (60-80); ISTAT SOURCE VEN
[2023-08-22] MEDS ORDERED: furosemide 20MG tablet PO SCH (08:00)
== END 2023-08-21 10:40 | disposition home or self-care (01) ==
LOC: SSTAY O 10:31 → CICU 2S 19:39 → SSTAY O 08-20 08:57 → CICU 2S 08-20 08:58 → PCU 3S 08-20 19:47 → CICU 2S 08-20 19:48 → PCU 3S 08-20 19:48 → UNDODISOB 08-21 10:40
PROVIDERS: ADMIT Internal Medicine Cardiovascular Disease; ATTEND Internal Medicine Cardiovascular Disease
DX: I25.10 Atherosclerotic heart disease of native coronary artery without angina pectoris (principal); T82.855A Stenosis of coronary artery stent, initial encounter; E78.5 Hyperlipidemia, unspecified; I48.0 Paroxysmal atrial fibrillation; I13.0 Hypertensive heart and chronic kidney disease with heart failure and stage 1 through stage 4 chronic kidney disease, or unspecified chronic kidney disease; I50.30 Unspecified diastolic (congestive) heart failure; N18.9 Chronic kidney disease, unspecified; N40.0 Benign prostatic hyperplasia without lower urinary tract symptoms; I35.0 Nonrheumatic aortic (valve) stenosis; Y83.1 Surgical operation with implant of artificial internal device as the cause of abnormal reaction of the patient, or of later complication, without mention of misadventure at the time of the procedure; Z79.899 Other long term (current) drug therapy
CPT/HCPCS: 36415; 76937; 80048; 80061; 82803; 83880; 85014; 85025; 85347; 85730; 86885; 86900; 86901; 86920; 92978; 93005; 93460; 96365; 96366; 96368; 96375; 96376; A6258; C1874; C9600; G0378; J0360; J1644; J1940; J2250; J2405; J3010; J3490; J7030; J7040; J7070; Q0163; Q9967; 99152; 99153; A4314; A6213; A6402; A6449; C1725; C1751; C1753; C1769; C1894

== ENCOUNTER 2023-08-31 14:06 | Outpatient (CLI) | payer MEDICARE ==
[~2023-08-31 14:06] MED LIST changes: -AMLO5TAB PO; +APIX5TAB3 PO; +ASPI-1071 PO; +ATOR-2 PO; -ATOR40TA PO; +CARV3.122 PO; -CLOP75TA33 PO; +CLOP75TA34 PO; +EMPA10TA PO; -FINA5TAB11 PO; -FLO0.4C PO; +FURO20TA4 PO; -LOP25T PO; +NITR0.4T51 SL; -OXYC-145 PO; -PANT-47 PO; -PRE5T PO; -SUCR1TAB PO
== END 2023-08-31 23:59 | disposition home or self-care (01) ==
LOC: RAD 14:06
PROVIDERS: ATTEND Physician Assistant
DX: R13.14 Dysphagia, pharyngoesophageal phase (principal); R05.9 Cough, unspecified
CPT/HCPCS: 74230

== ENCOUNTER 2024-04-25 09:46 | Day surgery (SDC) | payer MEDICARE ==
[~2024-04-25] VITALS: Ht 172.7 cm; Wt 81.1 kg
[2024-04-25] VITALS (10 sets, daily range): BP systolic 132–163; BP diastolic 63–95; PULSE 53–59; RESP 10–17; TEMP 97.7; O2SAT 97–99
[~2024-04-25 09:46] MED LIST changes: -NITR0.4T51 SL
[2024-04-25] MEDS ORDERED: LORazepam 0.5 MG tablet PO PRN (10:15)
[2024-04-25] MEDS ORDERED: SACU1TAB PO (10:53)
[2024-04-25] MEDS ORDERED: FLO0.4C (10:53)
[2024-04-25] MEDS ORDERED: PANT40TA54 PO (10:53)
[2024-04-25] MEDS ORDERED: NITR0.4T48 PO (10:53)
[2024-04-25] MEDS: diphenhydrAMINE 25mg capsule PO PRN (11:31)
[2024-04-25] MEDS: acetylcysteine 200 MG/ml 4ml vial PO PRN (11:32)
[2024-04-25] MEDS: normal saline 1,000 ML IV SCH (11:34)
[2024-04-25] MEDS: sodium bicarbonate 1meq/ml syr 150 ML in dextrose 5%-water 1,000 ML IV ONE (11:41)
[2024-04-25] MEDS ORDERED: midazolam 1 mg/ML 2ml injection ONE (13:43)
[2024-04-25] MEDS ORDERED: LIDOcaine 1% (10mg/ml) 2ml vial ONE (13:43)
[2024-04-25] MEDS ORDERED: heparin 1,000unit/ml 10ml vial 10 ML ONE (13:43)
[2024-04-25] MEDS ORDERED: verapamil 2.5 mg/ml inj IV ONE (13:43)
[2024-04-25] MEDS ORDERED: iohexol 350MG/ML 100ml bottle IV ONE (13:43)
[2024-04-25] MEDS ORDERED: fentaNYL/PF 50MCG/1 ML 2ML syringe ONE (13:43)
[2024-04-25] MEDS ORDERED: nitroGLYCERIN 500mcg/5mL D5W 5 ML IV ONE (13:44)
[2024-04-25] MEDS ORDERED: LIDOcaine 1% 30ml preserv. free vial ONE (14:16)
[2024-04-25] MEDS ORDERED: heparin 1,000 UNITS/NS 500ml 500 ML ONE (14:21)
[2024-04-25] MEDS: HYDROcodone/acetaminophen 10/325mg tab PO PRN (16:40)
== END 2024-04-25 20:00 | disposition home or self-care (01) ==
LOC: SSTAY O 09:46
PROVIDERS: ATTEND Internal Medicine Cardiovascular Disease
DX: I25.10 Atherosclerotic heart disease of native coronary artery without angina pectoris (principal); I49.3 Ventricular premature depolarization; I10 Essential (primary) hypertension; E78.5 Hyperlipidemia, unspecified; E66.3 Overweight; I35.0 Nonrheumatic aortic (valve) stenosis; Z79.02 Long term (current) use of antithrombotics/antiplatelets; Z79.899 Other long term (current) drug therapy; Z90.49 Acquired absence of other specified parts of digestive tract; Z95.5 Presence of coronary angioplasty implant and graft; Z98.890 Other specified postprocedural states; Z68.27 Body mass index [BMI] 27.0-27.9, adult; Z82.3 Family history of stroke
CPT/HCPCS: 93005; 93460; 99152; A6258; A6402; C1725; C1751; C1769; C1894; J1644; J2001; J2250; J3010; J3490; J7030; J7070; Q0163; Q9967; Z7610; 76937; 99153; A6449